=== PATIENT | male | born 1985 | race Caucasian/White ===

== ENCOUNTER 2020-02-08 23:21 | Outpatient (CLI) | payer OTHER | END 2020-02-08 23:22 | disposition critical access hospital (66) | LOC: EMS 23:21 | PROVIDERS: ATTEND Surgery | DX: M25.511 Pain in right shoulder (principal); R42 Dizziness and giddiness; R20.0 Anesthesia of skin; M54.5 Low back pain | CPT/HCPCS: A0425; A0427 ==

== ENCOUNTER 2020-02-08 23:56 | Inpatient (IN) | payer OTHER ==
--- NOTE | 2020-02-09 00:14 | ED Physician Documentation ---
PD HPI UPPER EXT INJURY - Stated complaint Stated Complaint: RIGHT SHOULDER PAIN PD PAST MEDICAL HISTORY - Past Medical History Past Medical History: No Cardiovascular: None Respiratory: None Neuro: None Endocrine/Autoimmune: None GI: None : None HEENT: None Psych: None Musculoskeletal: None Derm: None - Past Surgical History Past Surgical History: Yes General: Other Ortho: Other - Allergies Allergies/Adverse Reactions: Allergies Allergy/AdvReac Type Severity Reaction Status Date / Time No Known Drug Allergies Allergy Verified 02/09/20 00:02 - Social History Does the pt smoke?: No Smoking Status: Never smoker Does the pt drink ETOH?: Yes Does the pt have substance abuse?: No - Immunizations Immunizations are current?: Yes - POLST Patient has POLST: No Results - Vitals Vitals: Vital Signs - 24 hr 02/08/20 23:59 Temperature 36.7 C Heart Rate 111 H Respiratory 17 Rate Blood Pressure 100/64 O2 Saturation 98 Oxygen O2 Source Room air
[2020-02-09 00:53] LABS: BASOPHILS # (AUTO) 0.1 10^3/uL (0.0-0.1); BASOPHILS % (AUTO) 0.4 %; EOSINOPHILS # (AUTO) 0.1 10^3/uL (0.0-0.7); EOSINOPHILS % (AUTO) 0.4 %; HGB - HEMOGLOBIN 9.6 g/dL (14.0-18.0); LYMPHOCYTES # (AUTO) 1.3 10^3/uL (1.5-3.5); LYMPHOCYTES % (AUTO) 9.4 %; MEAN CORPUSCULAR HEMOGLOBIN 33.7 pg (27.0-31.0); MEAN CORPUSCULAR HGB CONC 34.4 g/dL (32.0-36.0); MEAN CORPUSCULAR VOLUME 97.9 fL (80.0-94.0); MEAN PLATELET VOLUME 9.2 fL (7.4-11.4); MONOCYTES # (AUTO) 0.8 10^3/uL (0.0-1.0); MONOCYTES % (AUTO) 5.8 %; NEUTROPHILS # (AUTO) 11.1 10^3/uL (1.5-6.6); NEUTROPHILS % (AUTO) 83.5 %; PLT - PLATELET COUNT 190 10^3/uL (130-450); RED BLOOD COUNT 2.85 10^6/uL (4.70-6.10); RED CELL DISTRIBUTION WIDTH 12.3 % (12.0-15.0); WHITE BLOOD COUNT 13.4 x10^3/uL (4.8-10.8)
[2020-02-09 00:58] LABS: CALCIUM 7.9 mg/dL (8.5-10.3); CREATININE 0.8 mg/dL (0.6-1.2)
--- NOTE | 2020-02-09 00:58 | XRAY Report ---
Reason: right chest pain, dyspnea Procedure Date: 02/09/2020 Accession Number: [id number] / [id number] Procedure: XR - Chest 2 View X-Ray CPT Code: 26739 Addended Final Report FULL RESULT: EXAM: CHEST RADIOGRAPHY EXAM DATE: 02/09/2020 12:53 AM. CLINICAL HISTORY: Right chest pain, dyspnea. COMPARISON: None. TECHNIQUE: 2 views. FINDINGS: There is a large right hydropneumothorax with collapse of the right lung. No mediastinal shift is seen. The left lung is clear and fully inflated. The heart size is normal. No acute osseous abnormality is seen. IMPRESSION: Large right hydropneumothorax with collapse of the right lung. RADIA The critical result notification system was initiated by Dr. Jenn Cardozo at 12:55 AM on 02/09/2020. ADDENDUM: 02/09/20 01:00 The above critical result findings were discussed with Gil Gannon by Dr. Jenn Cardozo at 01:00 AM on 02/09/2020.
[2020-02-09] MEDS ORDERED: LIDOCAINE-MPF 2% 5 ML VIAL SUBQ STA (01:07)
[2020-02-09] MEDS ORDERED: LORazepam 2 MG/ML VIAL IVP STA (01:13)
[2020-02-09] MEDS ORDERED: IOVERSOL 320 100 ML VIAL IVP ONE ×2 (01:54→02:14)
--- NOTE | 2020-02-09 01:54 | XRAY Report ---
Reason: Chest tube Procedure Date: 02/09/2020 Accession Number: [id number] / [id number] Procedure: XR - Chest for Line Placement CPT Code: Final Report FULL RESULT: EXAM: CHEST RADIOGRAPHY EXAM DATE: 02/09/2020 01:47 AM. CLINICAL HISTORY: Chest tube. COMPARISON: CHEST 2 VIEW 02/09/2020 12:47 AM. TECHNIQUE: 1 view. FINDINGS: A right pigtail catheter has been placed since the prior exam. There is no significant change in the size of the right hydropneumothorax with continued collapse of the right lung. The left lung remains clear. There is no mediastinal shift. The heart size is normal. IMPRESSION: No change in size of the large right hydropneumothorax following placement of a right pigtail catheter. RADIA
[2020-02-09 01:57] LABS: HGB - HEMOGLOBIN 9.2 g/dL (14.0-18.0)
--- NOTE | 2020-02-09 02:35 | CT Report ---
Reason: right hemo/pneumothorax Procedure Date: 02/09/2020 Accession Number: [id number] / [id number] Procedure: CT - CHEST W CPT Code: Final Report FULL RESULT: EXAM: CT CHEST EXAM DATE: 02/09/2020 02:08 AM. CLINICAL HISTORY: Right hydropneumothorax. COMPARISONS: Chest radiograph 02/09/2020 1:23 AM CHEST 2 VIEW 02/09/2020 12:47 AM. TECHNIQUE: Routine helical CT imaging was performed through the chest. IV contrast: None. Reconstructions: Coronal and sagittal. In accordance with CT protocol optimization, one or more of the following dose reduction techniques were utilized for this exam: automated exposure control, adjustment of mA and/or KV based on patient size, or use of iterative reconstructive technique. FINDINGS: The visible thyroid gland is within normal limits. Small foci of gas are seen anterior to the left thyroid lobe, likely related to the recent procedure. A small focus of air in the left internal jugular vein is likely related to the contrast injection. There is a left aortic arch with normal three-vessel branching pattern. The aorta and pulmonary artery are normal in course and caliber. The heart size is normal. There is no pericardial effusion. No mediastinal, hilar, or axillary lymphadenopathy is seen. The trachea is patent. There is a right pleural drain seen anteriorly. The pneumothorax component of the large right pneumothorax has significantly decreased in size since the previous chest radiographs. The large hydrothorax component persists. Areas of hyperattenuation within the lateral aspect of the fluid may represent areas of hemorrhage (series 3, images 67-77). The fluid extends anterior to the right upper lobe and along the right major and minor fissures. Consolidation and/or atelectasis is seen throughout the majority of the right lower lobe. The right upper lobe and right middle lobe are largely spared. Small subpleural cysts are seen along the anterior right lung apex. The left lung is clear. There is no left pleural effusion or pneumothorax. The visible portions of the liver, gallbladder, spleen, and kidneys are within normal limits. The stomach is distended with food material. He has since thorax is intact. The spinal alignment is maintained. There are no suspicious lytic or blastic lesions. IMPRESSION: 1. Decreased size of the pneumothorax component of the large right hydropneumothorax. 2. Areas of hyperattenuation within the right pleural effusion suggesting hemorrhagic component. 3. Large areas of consolidation in the right lower lobe. Given the presence of the large pleural effusion, this may be the result of an underlying pneumonia rather than simple collapse from the pneumothorax. RADIA The call report notification system was initiated by Dr. Jenn Cardozo at 02:27 AM on 02/09/2020. The above call report findings were discussed with Dr. Gil Gannon by Dr. Jenn Cardozo at 02:29 AM on 02/09/2020.
[2020-02-09] MEDS ORDERED: HYDROcod/ACETAM 5/325 MG TABLET PO STA (03:40)
--- NOTE | 2020-02-09 03:47 | HISTORY & PHYSICAL EXAMINATION ---
Chief Complaint - Chief Complaint Chief Complaint: acute onset right chest pain and shortness of breath earlier today Abdominal Pain HPI - History Obtained From History obtained from: Patient Exam limitations: No limitations - History of Present Illness Severity at the worst: Moderate Pain Quality: Sharp Timing: Abrupt onset Duration: Hours: Improved with: Oxygen, Other (chest tube) Associated symptoms: Shortness of air (much improved after chest tube) PMH/PSH - Past Medical History Cardiovascular: positive: None Respiratory: positive: None Neuro: positive: None Endocrine/Autoimmune: positive: None GI: positive: None : positive: None HEENT: positive: None Psych: positive: None Musculoskeletal: positive: None Derm: positive: None MRSA Hx?: No - Past Surgical History General: positive: Other Ortho: positive: Other Social & Family Hx - Social History Does the pt smoke?: No Smoking Status: Never smoker Does the pt drink ETOH?: Yes Does the pt have substance abuse?: No - POLST Patient has POLST: No Meds/Allgy - Allergies Allergies/Adverse Reactions: Allergies Allergy/AdvReac Type Severity Reaction Status Date / Time No Known Drug Allergies Allergy Verified 02/09/20 00:02 Review of Systems - Constitutional Constitutional: reports: Fatigue (10 pt ros otherwise negative. was well 24 hours ago) Prior Level of Functionality: very good Exam - Vital Signs Vital Signs: Vital Signs x48h Temp Pulse Resp BP Pulse Ox 02/09/20 03:31 37.1 C 92 14 101/56 L 02/09/20 03:24 94 14 100 02/09/20 03:20 37.3 C 103 H 18 96/58 L 02/09/20 03:15 37.1 C 101 H 15 104/55 L 02/09/20 02:47 20 02/09/20 02:41 105 H 20 108/80 100 02/09/20 02:36 105 H 19 103/74 100 02/09/20 02:12 105 H 22 106/65 100 02/09/20 02:04 103 H 20 105/73 99 02/09/20 01:56 20 93/59 L 02/09/20 01:32 124 H 21 96 02/09/20 01:24 117 H 22 97 02/09/20 01:18 125 H 22 112/75 98 02/09/20 00:54 109 H 18 106/71 100 02/08/20 23:59 36.7 C 111 H 17 100/64 98 - Physical Exam General Appearance: positive: No acute distress, Alert Eyes Bilateral: positive: Normal inspection ENT: positive: ENT inspection nml Neck: positive: Nml inspection Respiratory: positive: Breath sounds nml, Other (right anterior chest tube with valve. not to suction) Cardiovascular: positive: Regular rate & rhythm Abdomen: positive: No distention Results - Lab Results Fish Bones: 02/09/20 01:50 02/09/20 00:41 Other Lab Results: Lab Results x24hrs 02/09/20 02/09/20 02/09/20 Range/Units 01:50 01:50 00:41 WBC (4.8-10.8) x10^3/uL RBC (4.70-6.10) 10^6/uL Hgb 9.2 L (14.0-18.0) g/dL Hct 27.0 L (42.0-52.0) % MCV (80.0-94.0) fL MCH (27.0-31.0) pg MCHC (32.0-36.0) g/dL RDW (12.0-15.0) % Plt Count (130-450) 10^3/uL MPV (7.4-11.4) fL Neut # (Auto) (1.5-6.6) 10^3/uL Lymph # (Auto) (1.5-3.5) 10^3/uL [place] # (Auto) (0.0-1.0) 10^3/uL Eos # (Auto) (0.0-0.7) 10^3/uL Baso # (Auto) (0.0-0.1) 10^3/uL Absolute Nucleated RBC x10^3/uL Nucleated RBC % /100WBC Sodium (135-145) mmol/L Potassium (3.5-5.0) mmol/L Chloride (101-111) mmol/L Carbon Dioxide (21-32) mmol/L Anion Gap (6-13) BUN (6-20) mg/dL Creatinine (0.6-1.2) mg/dL Estimated GFR (MDRD) (>89) Glucose (70-100) mg/dL Calcium (8.5-10.3) mg/dL Blood Type A POSITIVE Blood Type Recheck A POSITIVE Antibody Screen NEGATIVE Crossmatch IS Only See Detail 02/09/20 02/09/20 Range/Units 00:41 00:41 WBC 13.4 H (4.8-10.8) x10^3/uL RBC 2.85 L (4.70-6.10) 10^6/uL Hgb 9.6 L (14.0-18.0) g/dL Hct 27.9 L (42.0-52.0) % MCV 97.9 H (80.0-94.0) fL MCH 33.7 H (27.0-31.0) pg MCHC 34.4 (32.0-36.0) g/dL RDW 12.3 (12.0-15.0) % Plt Count 190 (130-450) 10^3/uL MPV 9.2 (7.4-11.4) fL Neut # (Auto) 11.1 H (1.5-6.6) 10^3/uL Lymph # (Auto) 1.3 L (1.5-3.5) 10^3/uL [place] # (Auto) 0.8 (0.0-1.0) 10^3/uL Eos # (Auto) 0.1 (0.0-0.7) 10^3/uL Baso # (Auto) 0.1 (0.0-0.1) 10^3/uL Absolute Nucleated RBC 0.00 x10^3/uL Nucleated RBC % 0.0 /100WBC Sodium 137 (135-145) mmol/L Potassium 3.6 (3.5-5.0) mmol/L Chloride 107 (101-111) mmol/L Carbon Dioxide 23 (21-32) mmol/L Anion Gap 7.0 (6-13) BUN 17 (6-20) mg/dL Creatinine 0.8 (0.6-1.2) mg/dL Estimated GFR (MDRD) 109 (>89) Glucose 160 H (70-100) mg/dL Calcium 7.9 L (8.5-10.3) mg/dL Blood Type Blood Type Recheck Antibody Screen Crossmatch IS Only - Diagnostic Imaging Results Diagnostic Imaging Results: positive: Prelim report reviewed, Read independently Impression/Plan - Problem List Problem List: spontaneous pneumothorax with hemothorax right chest. much improved with ivf and chest tube. chest xrays and ct reviewed and discussed with ED Doctor and patient. Agree with care and plan. He is clinically much improved and his hemopneumothorax is much improved. plan 02 therapy, close observation, transfuse 1 unit, check labs and xray in am. Possibility of needing larger chest tube discussed.
[2020-02-09] MEDS: LACTATED RINGERS 1,000 ML IV SCH ×2 (05:22→13:26)
--- NOTE | 2020-02-09 06:26 | ED Physician Documentation ---
History of Present Illness - Stated complaint Stated Complaint: RIGHT SHOULDER PAIN - Chief complaint Chief Complaint: Ext Problem - History obtained from History obtained from: Patient, EMS - History of Present Illness Timing: Enter time (17:00), Today Pain level now: 4 Improved by: morphine (given by medics en route, 4 mg IV) Worsened by: deep breath in Associated symptoms: dyspnea, chest pain - Additonal information Additional information: BIBA. patient c/o right shoulder pain that started suddenly when he was throwing sticks while playing with a dog at 5 pm today. the pain gradually worsened and began to involve his right lower chest and right mid/low back, worse with deep breath in. He also developed some shortness of breath. Denies h/o similar symptoms. He was given 4mg IV morphine by medics en route and 400cc IV NS Review of Systems Constitutional: denies: Fever, Chills, Sweats Eyes: reports: Reviewed and negative Ears: reports: Reviewed and negative Nose: reports: Reviewed and negative Throat: reports: Reviewed and negative Cardiac: reports: Chest pain / pressure. denies: Palpitations, Pedal edema, Calf pain Respiratory: reports: Dyspnea. denies: Cough, Hemoptysis, Wheezing GI: reports: Reviewed and negative Musculoskeletal: reports: Joint pain (right shoulder) Neurologic: denies: Focal weakness, Numbness PD PAST MEDICAL HISTORY - Past Medical History Past Medical History: No Cardiovascular: None Respiratory: None Neuro: None Endocrine/Autoimmune: None GI: None : None HEENT: None Psych: None Musculoskeletal: None Derm: None - Past Surgical History Past Surgical History: Yes General: Other Ortho: Other - Allergies Allergies/Adverse Reactions: Allergies Allergy/AdvReac Type Severity Reaction Status Date / Time No Known Drug Allergies Allergy Verified 02/09/20 00:02 - Social History Does the pt smoke?: No Smoking Status: Never smoker Does the pt drink ETOH?: Yes Does the pt have substance abuse?: No - Immunizations Immunizations are current?: Yes - POLST Patient has POLST: No PD ED PE NORMAL - Vitals Vital signs reviewed: Yes - General General: Alert and oriented X 3, No acute distress, Well developed/nourished - HEENT HEENT: Moist mucous membranes - Neck Neck: Supple, no meningeal sign - Cardiac Cardiac: RRR, No murmur, No gallop, No rub - Respiratory Respiratory: No respiratory distress - Abdomen Abdomen: Soft, Non tender - Derm Derm: Normal color, Warm and dry - Extremities Extremities: No edema PD ED PE EXPANDED - Respiratory Respiratory: Absent Breath Sounds (right hemithorax) Results - Vitals Vitals: Vital Signs - 24 hr 02/08/20 02/09/20 02/09/20 23:59 00:54 01:18 Temperature 36.7 C Heart Rate 111 H 109 H 125 H Respiratory 17 18 22 Rate Blood Pressure 100/64 106/71 112/75 O2 Saturation 98 100 98 02/09/20 02/09/20 02/09/20 01:24 01:32 01:56 Temperature Heart Rate 117 H 124 H Respiratory 22 21 20 Rate Blood Pressure 93/59 L O2 Saturation 97 96 02/09/20 02/09/20 02/09/20 02:04 02:12 02:36 Temperature Heart Rate 103 H 105 H 105 H Respiratory 20 22 19 Rate Blood Pressure 105/73 106/65 103/74 O2 Saturation 99 100 100 02/09/20 02/09/20 02/09/20 02:41 02:47 03:15 Temperature 37.1 C Heart Rate 105 H 101 H Respiratory 20 20 15 Rate Blood Pressure 108/80 104/55 L O2 Saturation 100 02/09/20 02/09/20 02/09/20 03:20 03:24 03:31 Temperature 37.3 C 37.1 C Heart Rate 103 H 94 92 Respiratory 18 14 14 Rate Blood Pressure 96/58 L 101/56 L O2 Saturation 100 02/09/20 04:15 Temperature Heart Rate 96 Respiratory 14 Rate Blood Pressure 99/54 L O2 Saturation 100 Oxygen O2 Source Non-rebreather mask Oxygen Flow Rate 15 - Labs Labs: Laboratory Tests 02/09/20 02/09/20 02/09/20 00:41 00:41 00:41 WBC 13.4 H RBC 2.85 L Hgb 9.6 L Hct 27.9 L MCV 97.9 H MCH 33.7 H MCHC 34.4 RDW 12.3 Plt Count 190 MPV 9.2 Neut # (Auto) 11.1 H Lymph # (Auto) 1.3 L [place] # (Auto) 0.8 Eos # (Auto) 0.1 Baso # (Auto) 0.1 Absolute Nucleated RBC 0.00 Nucleated RBC % 0.0 Sodium 137 Potassium 3.6 Chloride 107 Carbon Dioxide 23 Anion Gap 7.0 BUN 17 Creatinine 0.8 Estimated GFR (MDRD) 109 Glucose 160 H Calcium 7.9 L Blood Type Blood Type Recheck A POSITIVE Antibody Screen Crossmatch IS Only 02/09/20 02/09/20 01:50 01:50 WBC RBC Hgb 9.2 L Hct 27.0 L MCV MCH MCHC RDW Plt Count MPV Neut # (Auto) Lymph # (Auto) [place] # (Auto) Eos # (Auto) Baso # (Auto) Absolute Nucleated RBC Nucleated RBC % Sodium Potassium Chloride Carbon Dioxide Anion Gap BUN Creatinine Estimated GFR (MDRD) Glucose Calcium Blood Type A POSITIVE Blood Type Recheck Antibody Screen NEGATIVE Crossmatch IS Only See Detail - Rads (name of study) cxr Radiology: Prelim report reviewed, See rad report post-chest tube cxr Radiology: Prelim report reviewed, See rad report CT chest w/ contrast Radiology: Prelim report reviewed, See rad report Procedures - Chest Tube (location) right other other Chest tube preparation: Consent obtained, Sterile prep and drape Chest tube location: Right, Intercostal space - enter (2nd), Other (midclavicular line) Chest tube anesthesia: Lidocaine (3 cc 2% lidocaine without epinephrine) Chest tube size: 13 (UreSil) Chest tube return: Air, Blood, Volume of blood (enter cc (approximately 150cc) Chest tube after care: Confirmed with xray, Pt tolerated well PD MEDICAL DECISION MAKING - ED course Complexity details: reviewed results, re-evaluated patient, considered differential, d/w patient ED course: large right pneumothorax on cxr, spontaneous ptx by HPI. UreSil chest tube placed. Initially, mostly blood was returning with syringe suction (approximately 100cc), and thus repeat CXR ordered as well as CT chest w/contrast. after repeat CXR, patient was sitting more upright than previous, and I was then able to suction large amount of air before eventually having more blood return (another 50cc). Patient's blood pressure then decreased steadily into hypotensive range (80s, then 70s, then 60s) although he did not show any clinical signs of deterioration (such as AMS or dyspnea). CT shows reexpansion of the pneumonthorax but still large pleural effusion. Dr. Erickson (environmental specialist surgeon) evaluated patient in ED. Fortunately, patient's blood pressures normalized just before he was brought over for the CT and he remained normotensive for remainder of ED stay. Admitted to surgical service. Departure - Departure Disposition: 66 [facility] DC/Xfer Clinical Impression: Hemopneumothorax on right Condition: Stable Discharge Date/Time: 02/09/20 05:00
[2020-02-09 08:11] LABS: BASOPHILS % (AUTO) 0.2 %; EOSINOPHILS % (AUTO) 0.2 %; LYMPHOCYTES # (AUTO) 1.6 10^3/uL (1.5-3.5); LYMPHOCYTES % (AUTO) 20.3 %; MEAN CORPUSCULAR HEMOGLOBIN 32.7 pg (27.0-31.0); MEAN CORPUSCULAR HGB CONC 34.5 g/dL (32.0-36.0); MEAN CORPUSCULAR VOLUME 94.7 fL (80.0-94.0); MEAN PLATELET VOLUME 9.5 fL (7.4-11.4); MONOCYTES # (AUTO) 0.7 10^3/uL (0.0-1.0); NEUTROPHILS # (AUTO) 5.6 10^3/uL (1.5-6.6); NEUTROPHILS % (AUTO) 70.1 %; PLT - PLATELET COUNT 153 10^3/uL (130-450); RED BLOOD COUNT 2.45 10^6/uL (4.70-6.10)
[2020-02-09 08:23] LABS: INR 1.3 (0.8-1.2); PT - PROTHROMBIN TIME 14.1 secs (9.9-12.6)
[2020-02-09 08:30] LABS: PARTIAL THROMBOPLASTIN TIME 18.4 secs (24.9-33.3)
--- NOTE | 2020-02-09 12:48 | XRAY Report ---
Reason: ptx Procedure Date: 02/09/2020 Accession Number: [id number] / [id number] Procedure: XR - Chest 2 View X-Ray CPT Code: 45107 Final Report FULL RESULT: EXAM: CHEST RADIOGRAPHY EXAM DATE: 02/09/2020 12:24 PM. CLINICAL HISTORY: Ptx. COMPARISON: - - - - - 02/09/2020 1:23 AM CHEST 2 VIEW 02/09/2020 12:47 AM CHEST W/ 02/09/2020 2:00 AM. TECHNIQUE: 2 views. FINDINGS: Support apparatus: Right pleural drain unchanged. Lungs/Pleura: Large right hydropneumothorax with small air component and large fluid component. The majority of the right lung is opacified with a small amount of aerated lung seen in the right upper thorax. Blunting of the left costophrenic angle could reflect trace left pleural effusion. Left chest is otherwise clear. Mediastinum: Evaluation of cardiomediastinal silhouette is limited by opacification of the right thorax. No obvious cardiomegaly or leftward shift. Other: None. IMPRESSION: 1. Redemonstrated large right hydropneumothorax with small air component and large fluid component. Majority of right lung is consolidated. Allowing for differences in technique, there may be increased consolidation of the right lung. Otherwise similar appearance to CT chest performed earlier on 02/09/2020. Pleural drain unchanged. 2. Trace left pleural effusion may now be present. RADIA
--- NOTE | 2020-02-09 13:28 | PROVIDER PROGRESS NOTE ---
Subjective - Prog Note Date Prog Note Date: 02/09/20 - Subjective Pt reports feeling: Improved (denies shortness of breath. discomfort improved.) Objective - Vital Signs/Intake & Output Vital Signs: Vital Signs x48h Temp Pulse Pulse Resp BP BP Pulse Ox 02/09/20 10:10 37 C 111 H 18 100 02/09/20 07:30 37.0 C 111 H 18 114/62 97 02/09/20 07:03 98 02/09/20 05:27 37.1 C 102 H 16 104/58 L Intake & Output: Intake & Output 02/06/20 02/07/20 02/08/20 02/09/20 23:59 23:59 23:59 23:59 Intake Total 2300 Balance 2300 - Objective General Appearance: positive: No acute distress Eyes Bilateral: positive: Normal inspection Neck: positive: Nml inspection, No JVD Respiratory: positive: No respiratory distress - Lab Results Fish Bones: 02/09/20 08:03 02/09/20 00:41 Other Labs: Lab Results x24hrs 02/09/20 02/09/20 02/09/20 Range/Units 08:03 08:03 01:50 WBC 8.0 (4.8-10.8) x10^3/uL RBC 2.45 L (4.70-6.10) 10^6/uL Hgb 8.0 L (14.0-18.0) g/dL Hct 23.2 L (42.0-52.0) % MCV 94.7 H (80.0-94.0) fL MCH 32.7 H (27.0-31.0) pg MCHC 34.5 (32.0-36.0) g/dL RDW 15.0 (12.0-15.0) % Plt Count 153 (130-450) 10^3/uL MPV 9.5 (7.4-11.4) fL Neut # (Auto) 5.6 (1.5-6.6) 10^3/uL Lymph # (Auto) 1.6 (1.5-3.5) 10^3/uL [place] # (Auto) 0.7 (0.0-1.0) 10^3/uL Eos # (Auto) 0.0 (0.0-0.7) 10^3/uL Baso # (Auto) 0.0 (0.0-0.1) 10^3/uL Absolute Nucleated RBC 0.00 x10^3/uL Nucleated RBC % 0.0 /100WBC PT 14.1 H (9.9-12.6) secs INR 1.3 H (0.8-1.2) APTT 18.4 L (24.9-33.3) secs Sodium (135-145) mmol/L Potassium (3.5-5.0) mmol/L Chloride (101-111) mmol/L Carbon Dioxide (21-32) mmol/L Anion Gap (6-13) BUN (6-20) mg/dL Creatinine (0.6-1.2) mg/dL Estimated GFR (MDRD) (>89) Glucose (70-100) mg/dL Calcium (8.5-10.3) mg/dL Blood Type A POSITIVE Blood Type Recheck Antibody Screen NEGATIVE Crossmatch IS Only See Detail 02/09/20 02/09/20 02/09/20 Range/Units 01:50 00:41 00:41 WBC (4.8-10.8) x10^3/uL RBC (4.70-6.10) 10^6/uL Hgb 9.2 L (14.0-18.0) g/dL Hct 27.0 L (42.0-52.0) % MCV (80.0-94.0) fL MCH (27.0-31.0) pg MCHC (32.0-36.0) g/dL RDW (12.0-15.0) % Plt Count (130-450) 10^3/uL MPV (7.4-11.4) fL Neut # (Auto) (1.5-6.6) 10^3/uL Lymph # (Auto) (1.5-3.5) 10^3/uL [place] # (Auto) (0.0-1.0) 10^3/uL Eos # (Auto) (0.0-0.7) 10^3/uL Baso # (Auto) (0.0-0.1) 10^3/uL Absolute Nucleated RBC x10^3/uL Nucleated RBC % /100WBC PT (9.9-12.6) secs INR (0.8-1.2) APTT (24.9-33.3) secs Sodium 137 (135-145) mmol/L Potassium 3.6 (3.5-5.0) mmol/L Chloride 107 (101-111) mmol/L Carbon Dioxide 23 (21-32) mmol/L Anion Gap 7.0 (6-13) BUN 17 (6-20) mg/dL Creatinine 0.8 (0.6-1.2) mg/dL Estimated GFR (MDRD) 109 (>89) Glucose 160 H (70-100) mg/dL Calcium 7.9 L (8.5-10.3) mg/dL Blood Type Blood Type Recheck A POSITIVE Antibody Screen Crossmatch IS Only 02/09/20 Range/Units 00:41 WBC 13.4 H (4.8-10.8) x10^3/uL RBC 2.85 L (4.70-6.10) 10^6/uL Hgb 9.6 L (14.0-18.0) g/dL Hct 27.9 L (42.0-52.0) % MCV 97.9 H (80.0-94.0) fL MCH 33.7 H (27.0-31.0) pg MCHC 34.4 (32.0-36.0) g/dL RDW 12.3 (12.0-15.0) % Plt Count 190 (130-450) 10^3/uL MPV 9.2 (7.4-11.4) fL Neut # (Auto) 11.1 H (1.5-6.6) 10^3/uL Lymph # (Auto) 1.3 L (1.5-3.5) 10^3/uL [place] # (Auto) 0.8 (0.0-1.0) 10^3/uL Eos # (Auto) 0.1 (0.0-0.7) 10^3/uL Baso # (Auto) 0.1 (0.0-0.1) 10^3/uL Absolute Nucleated RBC 0.00 x10^3/uL Nucleated RBC % 0.0 /100WBC PT (9.9-12.6) secs INR (0.8-1.2) APTT (24.9-33.3) secs Sodium (135-145) mmol/L Potassium (3.5-5.0) mmol/L Chloride (101-111) mmol/L Carbon Dioxide (21-32) mmol/L Anion Gap (6-13) BUN (6-20) mg/dL Creatinine (0.6-1.2) mg/dL Estimated GFR (MDRD) (>89) Glucose (70-100) mg/dL Calcium (8.5-10.3) mg/dL Blood Type Blood Type Recheck Antibody Screen Crossmatch IS Only - Diagnostic Imaging Diagnostic Imaging Results: positive: Prelim report reviewed, Final report reviewed Assessment/Plan - Problem List (1) Hemopneumothorax on right Impression: hemopneumothorax. he denies shortness of breath, felt improved. he left for xray when I was present. result now back hemopneumothorax with small pneumothorax and right lung consolidation. this is discussed with [place] [facility] and the patient. plan continued observation. transfuse second unit of blood. possible larger chest tube later today or tomorrow
[2020-02-09] MEDS: HYDROcod/ACETAM 5/325 MG TABLET PO PRN ×2 (16:09→20:41)
[2020-02-09 18:26] LABS: BASOPHILS % (AUTO) 0.3 %; EOSINOPHILS # (AUTO) 0.1 10^3/uL (0.0-0.7); EOSINOPHILS % (AUTO) 1.2 %; HGB - HEMOGLOBIN 8.2 g/dL (14.0-18.0); LYMPHOCYTES # (AUTO) 2.5 10^3/uL (1.5-3.5); LYMPHOCYTES % (AUTO) 25.5 %; MEAN CORPUSCULAR HEMOGLOBIN 32.7 pg (27.0-31.0); MEAN CORPUSCULAR HGB CONC 34.7 g/dL (32.0-36.0); MEAN PLATELET VOLUME 9.6 fL (7.4-11.4); MONOCYTES # (AUTO) 0.8 10^3/uL (0.0-1.0); MONOCYTES % (AUTO) 7.9 %; NEUTROPHILS # (AUTO) 6.3 10^3/uL (1.5-6.6); NEUTROPHILS % (AUTO) 64.8 %; PLT - PLATELET COUNT 134 10^3/uL (130-450); RED BLOOD COUNT 2.51 10^6/uL (4.70-6.10); RED CELL DISTRIBUTION WIDTH 15.2 % (12.0-15.0); WHITE BLOOD COUNT 9.7 x10^3/uL (4.8-10.8)
[2020-02-10] MEDS: LACTATED RINGERS 1,000 ML IV SCH ×3 (00:39→20:58)
[2020-02-10] MEDS: HYDROcod/ACETAM 5/325 MG TABLET PO PRN ×5 (04:54→22:19)
[2020-02-10 06:19] LABS: BASOPHILS % (AUTO) 0.3 %; EOSINOPHILS # (AUTO) 0.1 10^3/uL (0.0-0.7); HGB - HEMOGLOBIN 7.9 g/dL (14.0-18.0); LYMPHOCYTES # (AUTO) 1.8 10^3/uL (1.5-3.5); LYMPHOCYTES % (AUTO) 19.8 %; MEAN CORPUSCULAR HEMOGLOBIN 31.6 pg (27.0-31.0); MEAN CORPUSCULAR HGB CONC 33.9 g/dL (32.0-36.0); MEAN CORPUSCULAR VOLUME 93.2 fL (80.0-94.0); MEAN PLATELET VOLUME 10.4 fL (7.4-11.4); MONOCYTES # (AUTO) 0.8 10^3/uL (0.0-1.0); MONOCYTES % (AUTO) 8.8 %; NEUTROPHILS # (AUTO) 6.3 10^3/uL (1.5-6.6); NEUTROPHILS % (AUTO) 69.8 %; PLT - PLATELET COUNT 153 10^3/uL (130-450); RED CELL DISTRIBUTION WIDTH 15.5 % (12.0-15.0)
[2020-02-10] MEDS ORDERED: LIDOCAINE 1% 50 ML MDV TD ONE (10:03)
[2020-02-10] MEDS ORDERED: BUPIVACAINE 0.5% PF 30 ML VIAL TOP STA (10:12)
--- NOTE | 2020-02-10 12:29 | PROVIDER PROGRESS NOTE ---
Subjective - Prog Note Date Prog Note Date: 02/10/20 - Subjective Pt reports feeling: Improved (comfortable over night with no shortness of breath. feeling more left chest pressure) Objective - Vital Signs/Intake & Output Vital Signs: Vital Signs x48h Temp Pulse Resp BP Pulse Ox 02/10/20 08:41 37 C 118 H 16 137/79 H 96 02/10/20 05:00 37.1 C 19 99 Intake & Output: Intake & Output 02/07/20 02/08/20 02/09/20 02/10/20 23:59 23:59 23:59 23:59 Intake Total 4990.833 1727.084 Output Total 325 350 Balance 4665.833 1377.084 - Objective General Appearance: positive: No acute distress, Alert Eyes Bilateral: positive: Normal inspection, PERRL ENT: positive: ENT inspection nml Neck: positive: Nml inspection, No JVD, Trachea midline Respiratory: positive: No respiratory distress Cardiovascular: positive: Regular rate & rhythm Abdomen: positive: Non-tender, No distention Extremities: positive: No pedal edema Neurologic/Psychiatric: positive: Oriented x3 - Lab Results Fish Bones: 02/10/20 05:04 02/09/20 00:41 Other Labs: Lab Results x24hrs 02/10/20 02/09/20 02/09/20 Range/Units 05:04 18:20 01:50 WBC 9.0 9.7 (4.8-10.8) x10^3/uL RBC 2.50 L 2.51 L (4.70-6.10) 10^6/uL Hgb 7.9 L 8.2 L (14.0-18.0) g/dL Hct 23.3 L 23.6 L (42.0-52.0) % MCV 93.2 94.0 (80.0-94.0) fL MCH 31.6 H 32.7 H (27.0-31.0) pg MCHC 33.9 34.7 (32.0-36.0) g/dL RDW 15.5 H 15.2 H (12.0-15.0) % Plt Count 153 134 (130-450) 10^3/uL MPV 10.4 9.6 (7.4-11.4) fL Neut # (Auto) 6.3 6.3 (1.5-6.6) 10^3/uL Lymph # (Auto) 1.8 2.5 (1.5-3.5) 10^3/uL [place] # (Auto) 0.8 0.8 (0.0-1.0) 10^3/uL Eos # (Auto) 0.1 0.1 (0.0-0.7) 10^3/uL Baso # (Auto) 0.0 0.0 (0.0-0.1) 10^3/uL Absolute Nucleated RBC 0.00 0.00 x10^3/uL Nucleated RBC % 0.0 0.0 /100WBC Blood Type A POSITIVE Antibody Screen NEGATIVE Crossmatch IS Only See Detail Assessment/Plan - Problem List (1) Hemopneumothorax on right Impression: hemopneumothorax. after parq and consent right 32 fr chest tube placed under sterile conditions. well tolerated. plan follow up hct later today. cxr tomor row am. likely remove chest tube tuesday and home tuesday. possible need for 1 more unit of blood for total of 3 discussed
--- NOTE | 2020-02-10 12:34 | PROCEDURE REPORT ---
Hospitalist Procedure Note - Procedure Note Procedure Note: diagnosis hemopneumothorax anesthesia local with marcaine and lidocaine surgeon Jr Erickson MD Procedure: right 32 fr chest tube placed. sterile technique well tolerated findings 2500 ml thin bloody fluid and small amount of air
[2020-02-10] MEDS ORDERED: METOCLOPRAMIDE 10 MG TABLET PO PRN (14:20)
[2020-02-10] MEDS: ONDANSETRON ODT 4 MG TABLET TL PRN (14:32)
[2020-02-10] MEDS: KETOROLAC 15 MG/ML VIAL IVP PRN (19:05)
[2020-02-11] MEDS: ONDANSETRON ODT 4 MG TABLET TL PRN (00:25)
[2020-02-11] MEDS: HYDROcod/ACETAM 5/325 MG TABLET PO PRN ×4 (02:32→17:00)
[2020-02-11] MEDS: KETOROLAC 15 MG/ML VIAL IVP PRN ×2 (08:40→21:52)
--- NOTE | 2020-02-11 09:45 | XRAY Report ---
Reason: follow up hemopneumothorax Procedure Date: 02/11/2020 Accession Number: [id number] / [id number] Procedure: XR - Chest 2 View X-Ray CPT Code: 43005 Final Report FULL RESULT: EXAM: CHEST RADIOGRAPHY EXAM DATE: 02/11/2020 09:38 AM. CLINICAL HISTORY: Right pneumothorax. COMPARISON: CHEST 2 VIEW 02/09/2020 12:12 PM. TECHNIQUE: 2 views. FINDINGS: Lungs/Pleura: A right-sided chest tube is in place terminating along the mid lung region. There has been significant improvement in right lung aeration. A tiny right apical pneumothorax is seen with approximately 4 mm apical separation. There is patchy right midlung airspace disease in part due to atelectasis. The left lung remains clear. Mediastinum: Heart and mediastinal contours are unremarkable. Other: None. IMPRESSION: Significantly improved right lung aeration status post chest tube placement. Tiny right apical pneumothorax seen. Patchy right midlung airspace disease persist. RADIA
[2020-02-11] MEDS: LACTATED RINGERS 1,000 ML IV SCH ×2 (10:41→22:12)
--- NOTE | 2020-02-11 10:42 | PROVIDER PROGRESS NOTE ---
Subjective - Prog Note Date Prog Note Date: 02/11/20 - Subjective Pt reports feeling: Improved Objective - Vital Signs/Intake & Output Vital Signs: Vital Signs x48h Temp Pulse Resp BP Pulse Ox 02/11/20 07:51 36.7 C 85 16 134/83 H 97 02/11/20 05:15 70 18 118/73 97 Intake & Output: Intake & Output 02/08/20 02/09/20 02/10/20 02/11/20 23:59 23:59 23:59 23:59 Intake Total 4990.833 3270.084 400 Output Total 325 5200 1060 Balance 4665.833 -1929.916 -660 - Objective General Appearance: positive: No acute distress Eyes Bilateral: positive: Normal inspection ENT: positive: ENT inspection nml Neck: positive: Nml inspection, No JVD Respiratory: positive: No respiratory distress - Lab Results Fish Bones: 02/11/20 09:05 02/09/20 00:41 Other Labs: Lab Results x24hrs 02/11/20 02/10/20 02/09/20 Range/Units 09:05 12:32 01:50 Hct 28.4 L 21.2 L (42.0-52.0) % Blood Type A POSITIVE Antibody Screen NEGATIVE Crossmatch IS Only See Detail Assessment/Plan - Problem List (1) Hemopneumothorax on right Impression: much improved. hct now stable. cxr much improved. minimal fluid. pt feels much improved. continue chest tube today. home in 1 to 2 days
[2020-02-11 20:09] LABS: HGB - HEMOGLOBIN 8.6 g/dL (14.0-18.0)
[2020-02-12] MEDS: LACTATED RINGERS 1,000 ML IV SCH ×2 (00:27→14:08)
[2020-02-12] MEDS: HYDROcod/ACETAM 5/325 MG TABLET PO PRN ×2 (00:33→21:11)
[2020-02-12 06:00] LABS: BASOPHILS % (AUTO) 0.6 %; EOSINOPHILS # (AUTO) 0.4 10^3/uL (0.0-0.7); EOSINOPHILS % (AUTO) 5.5 %; HGB - HEMOGLOBIN 8.3 g/dL (14.0-18.0); LYMPHOCYTES # (AUTO) 2.5 10^3/uL (1.5-3.5); LYMPHOCYTES % (AUTO) 37.6 %; MEAN CORPUSCULAR HEMOGLOBIN 30.4 pg (27.0-31.0); MEAN CORPUSCULAR HGB CONC 33.5 g/dL (32.0-36.0); MEAN CORPUSCULAR VOLUME 90.8 fL (80.0-94.0); MEAN PLATELET VOLUME 9.7 fL (7.4-11.4); MONOCYTES # (AUTO) 0.5 10^3/uL (0.0-1.0); MONOCYTES % (AUTO) 8.1 %; NEUTROPHILS # (AUTO) 3.1 10^3/uL (1.5-6.6); NEUTROPHILS % (AUTO) 47.9 %; PLT - PLATELET COUNT 181 10^3/uL (130-450); RED BLOOD COUNT 2.73 10^6/uL (4.70-6.10); RED CELL DISTRIBUTION WIDTH 15.5 % (12.0-15.0); WHITE BLOOD COUNT 6.5 x10^3/uL (4.8-10.8)
--- NOTE | 2020-02-12 09:45 | XRAY Report ---
Reason: hemo/pneumo thorax s/p chest tube placement Procedure Date: 02/12/2020 Accession Number: [id number] / [id number] Procedure: XR - Chest 2 View X-Ray CPT Code: 68778 Final Report FULL RESULT: EXAM: CHEST RADIOGRAPHY EXAM DATE: 02/12/2020 09:01 AM. CLINICAL HISTORY: Hemo/pneumothorax status post chest tube placement. COMPARISON: CHEST 2 VIEW 02/11/2020 9:08 AM. TECHNIQUE: 2 views. FINDINGS: Lungs/Pleura: Negative for apical pneumothorax. Small pleural fluid right costophrenic angle. Posterior pleural sulcus decreased fluid as compared to 02/11/2020. Right chest tube is unchanged in position with the distal chest tube projection T7-T8. Loculated mid posterior right hemithorax pleural fluid or hemothorax without change as compared to 02/11/2020. Possible superimposed mid posterior right hemithorax atelectasis or consolidation. Mediastinum: Heart size is normal. Trachea is midline. Other: None. IMPRESSION: 1. Right-sided chest tube with distal chest tube projection T7-T8 disk interspace without change from 02/11/2020. 2. Mid posterior right hemithorax infiltrate and/or loculated pleural fluid likely unchanged as compared to 02/11/2020. 3. Small pleural fluid right costophrenic angle. RADIA
--- NOTE | 2020-02-12 11:47 | PROVIDER PROGRESS NOTE ---
Subjective - General Admit Date: 02/09/20 Procedure Date: 02/09/20 Post Op Days: 3 Procedure Performed: Right chest tube placement - Review of Systems Wound/Incisions: positive: Drainage (SS 60 ml last shift) Drain Type: Right CT- set to water seal, no air leak General: positive: No symptoms HEENT: positive: No symptoms Pulmonary: positive: Pleuritic chest pain (worse with laying flat and deep breathing) Cardiovascular: positive: No symptoms Gastrointestinal: positive: No symptoms Objective - Patient Data Vital Signs: Vital Signs x48h Temp Pulse Resp BP Pulse Ox 02/12/20 08:47 36.9 C 99 16 123/64 100 Intake & Output: Intake and Output Totals x24h 02/10/20 02/11/20 02/12/20 23:59 23:59 23:59 Intake Total 3270.084 2890 2373.75 Output Total 5200 3650 1360 Balance -1929.916 -760 1013.75 - Lab Results Lab Results: 02/12/20 05:47 02/09/20 00:41 Other Lab Results: Lab Results x24hrs 02/12/20 02/11/20 Range/Units 05:47 20:01 WBC 6.5 (4.8-10.8) x10^3/uL RBC 2.73 L (4.70-6.10) 10^6/uL Hgb 8.3 L 8.6 L (14.0-18.0) g/dL Hct 24.8 L 25.3 L (42.0-52.0) % MCV 90.8 (80.0-94.0) fL MCH 30.4 (27.0-31.0) pg MCHC 33.5 (32.0-36.0) g/dL RDW 15.5 H (12.0-15.0) % Plt Count 181 (130-450) 10^3/uL MPV 9.7 (7.4-11.4) fL Neut # (Auto) 3.1 (1.5-6.6) 10^3/uL Lymph # (Auto) 2.5 (1.5-3.5) 10^3/uL [place] # (Auto) 0.5 (0.0-1.0) 10^3/uL Eos # (Auto) 0.4 (0.0-0.7) 10^3/uL Baso # (Auto) 0.0 (0.0-0.1) 10^3/uL Absolute Nucleated RBC 0.00 x10^3/uL Nucleated RBC % 0.0 /100WBC - Current Medications Current Medications: Current Medications Generic Name Dose Route Start Last Admin Trade Name Freq PRN Reason Stop Dose Admin Hydrocodone Bitart/Acetaminophen 0 tab 02/10/20 12:21 02/12/20 00:33 [place] 5/325 PO 2 tab Q4HR PRN Administration PAIN Lactated Ringer's 1,000 mls @ 75 mls/hr 02/10/20 12:22 02/12/20 09:30 Lr IV 75 mls/hr .[id number] FRANCK Infusion Ketorolac Tromethamine 15 mg 02/10/20 18:51 02/11/20 21:52 Toradol Inj (15mg) IVP 15 mg Q6HR PRN Administration PAIN Metoclopramide HCl 10 mg 02/10/20 14:20 02/11/20 07:49 Reglan PO 10 mg ACHS PRN Administration Nausea / Vomiting Ondansetron HCl 4 mg 02/10/20 14:21 02/11/20 00:25 Zofran Odt TL 4 mg Q6HR PRN Administration Nausea / Vomiting - Physical Exam Wound/Incisions: positive: Dressing dry and intact, Drainage (60 ml last shift SS Ct-tube in placed changed to water seal, no air leak) General Appearance: positive: No acute distress Respiratory: positive: No respiratory distress, Breath sounds nml, Other (CT in place on right side) Cardiovascular: positive: Regular rate & rhythm Abdomen: positive: Non-tender Neurologic/Psychiatric: positive: Oriented x3, Mood/affect nml Impression/Plan - Problem List Problem List: Spontaneous Hemo/pneumothorax. Responding well to CT tube drainage. Changed to water seal today. Plan to continue to monitor H&H and recheck CXR in am. If stable plan to clamp the CT tube tomorrow am.
[2020-02-12 16:04] LABS: HGB - HEMOGLOBIN 8.8 g/dL (14.0-18.0)
[2020-02-13] MEDS: HYDROcod/ACETAM 5/325 MG TABLET PO PRN (01:38)
[2020-02-13] MEDS: LACTATED RINGERS 1,000 ML IV SCH (03:26)
[2020-02-13 05:41] LABS: HGB - HEMOGLOBIN 9.2 g/dL (14.0-18.0); MEAN CORPUSCULAR HEMOGLOBIN 31.6 pg (27.0-31.0); MEAN CORPUSCULAR HGB CONC 33.9 g/dL (32.0-36.0); MEAN CORPUSCULAR VOLUME 93.1 fL (80.0-94.0); MEAN PLATELET VOLUME 9.2 fL (7.4-11.4); RED BLOOD COUNT 2.91 10^6/uL (4.70-6.10); RED CELL DISTRIBUTION WIDTH 15.3 % (12.0-15.0); WHITE BLOOD COUNT 7.6 x10^3/uL (4.8-10.8)
--- NOTE | 2020-02-13 09:51 | PROVIDER PROGRESS NOTE ---
Subjective - General Admit Date: 02/09/20 Procedure Date: 02/09/20 Post Op Days: 4 Procedure Performed: Right chest tube placement - Review of Systems Wound/Incisions: positive: Dressing dry and intact, Drainage (60 ml last shift SS Ct-tube in placed changed to water seal, no air leak) Drain Type: Right CT- set to water seal, no air leak General: positive: No symptoms HEENT: positive: No symptoms Pulmonary: positive: Pleuritic chest pain (improved off suction, slept well last night) Cardiovascular: positive: No symptoms Gastrointestinal: positive: No symptoms Objective - Patient Data Vital Signs: Vital Signs x48h Temp Pulse Resp BP Pulse Ox 02/13/20 07:39 36.8 C 73 16 121/71 100 Intake & Output: Intake and Output Totals x24h 02/11/20 02/12/20 02/13/20 23:59 23:59 23:59 Intake Total 2890 3970.00 1360 Output Total 3650 1512 78 Balance -760 2458.00 1282 - Lab Results Lab Results: 02/13/20 05:25 02/09/20 00:41 Other Lab Results: Lab Results x24hrs 02/13/20 02/12/20 Range/Units 05:25 15:54 WBC 7.6 (4.8-10.8) x10^3/uL RBC 2.91 L (4.70-6.10) 10^6/uL Hgb 9.2 L 8.8 L (14.0-18.0) g/dL Hct 27.1 L 25.7 L (42.0-52.0) % MCV 93.1 (80.0-94.0) fL MCH 31.6 H (27.0-31.0) pg MCHC 33.9 (32.0-36.0) g/dL RDW 15.3 H (12.0-15.0) % Plt Count 258 (130-450) 10^3/uL MPV 9.2 (7.4-11.4) fL - Current Medications Current Medications: Current Medications Generic Name Dose Route Start Last Admin Trade Name Freq PRN Reason Stop Dose Admin Hydrocodone Bitart/Acetaminophen 0 tab 02/10/20 12:21 02/13/20 01:38 [place] 5/325 PO 1 tab Q4HR PRN Administration PAIN Lactated Ringer's 1,000 mls @ 75 mls/hr 02/10/20 12:22 02/13/20 03:26 Lr IV 75 mls/hr .[id number] FRANCK Administration Ketorolac Tromethamine 15 mg 02/10/20 18:51 02/11/20 21:52 Toradol Inj (15mg) IVP 02/14/20 18:50 15 mg Q6HR PRN Administration PAIN Metoclopramide HCl 10 mg 02/10/20 14:20 02/11/20 07:49 Reglan PO 10 mg ACHS PRN Administration Nausea / Vomiting Ondansetron HCl 4 mg 02/10/20 14:21 02/11/20 00:25 Zofran Odt TL 4 mg Q6HR PRN Administration Nausea / Vomiting - Physical Exam Wound/Incisions: positive: Dressing dry and intact General Appearance: positive: No acute distress Respiratory: positive: Chest non-tender, No respiratory distress, Breath sounds nml Cardiovascular: positive: Regular rate & rhythm Abdomen: positive: Non-tender Skin: positive: No rash, Warm Extremities: positive: Full ROM, Nml appearance Neurologic/Psychiatric: positive: Oriented x3, Mood/affect nml Impression/Plan - Problem List Problem List: spontaneous hemo/pneumo thorax. Did well with CT to water seal NOC, no air leak and CXR unchanged. CT tube clamped this am will check q 4 hour CXR. His output is right at the 200ml gabby and slightly bloody, after q4 hour CXR, will check output prior to pulling the tube, if elevated may consider leaving the tube in another 24 hours. Patient understands this plan and is in agreement with it.
--- NOTE | 2020-02-13 10:33 | XRAY Report ---
Reason: hemo/pneumo thorax CT in place Procedure Date: 02/13/2020 Accession Number: [id number] / [id number] Procedure: XR - Chest 2 View X-Ray CPT Code: 96300 Final Report FULL RESULT: EXAM: CHEST RADIOGRAPHY EXAM DATE: 02/13/2020 09:23 AM. CLINICAL HISTORY: Hemo/pneumothorax, chest tube in place. COMPARISON: CHEST 2 VIEW 02/12/2020 9:01 AM. TECHNIQUE: 2 views. FINDINGS: Lungs/Pleura: There is a small right apical pneumothorax on today's exam, with pullback of the visceral pleura of approximately 7 mm from the chest wall. No pneumothorax was identified on comparison. Mediastinum: Heart and mediastinal contours are unremarkable. No midline shift. Other: There has been minimal pullback of large-bore right chest tube, distal sidehole in the lateral aspect of the right hemithorax. Track along the chest tube to the midline slightly less conspicuous. Interval increase of small right-sided pleural fluid collection. Left lung appears clear. There is minimal left costophrenic angle blunting suggesting minimal fluid. IMPRESSION: Small right apical pneumothorax identified on today's study, measuring approximately 7 mm transversely at the right lung apex. Slight interval increase of fluid in the right hemithorax. RADIA
--- NOTE | 2020-02-13 13:26 | XRAY Report ---
Reason: pneumo/hemo thorax, CT clamped Procedure Date: 02/13/2020 Accession Number: [id number] / [id number] Procedure: XR - Chest 2 View X-Ray CPT Code: 96306 Final Report FULL RESULT: EXAM: CHEST RADIOGRAPHY EXAM DATE: 02/13/2020 12:59 PM. CLINICAL HISTORY: Pneumothorax/hemothorax, CT clamped. COMPARISON: CHEST 2 VIEW 02/13/2020 8:59 AM. TECHNIQUE: 2 views. FINDINGS: No significant change in small right apical pneumothorax, with pullback of approximately 7 mm of the visceral pleura from the chest wall. Stable position of right chest tube. Stable small right and trace left pleural fluid collections. IMPRESSION: No significant change in small right apical pneumothorax. RADIA
--- NOTE | 2020-02-13 14:40 | PHARMACY PROGRESS NOTE ---
- Best Possible Medication History Admit Date and Time: 02/09/20 0434 Processed by: Pharmacy Medication History completed: Yes Patient Interview: Pt interview ONLY source As the person ultimately responsible for medication therapy, providers are able to order a medication from an existing home medication list in [facility] via the "Reconcile Routine" prior to Confirmation of that medication by academic support center director. Such practice is discouraged except when the physician, in their clinical judgment, deems that a medical need exists for a medication without regard to previous use.
--- NOTE | 2020-02-13 15:27 | Discharge Plan ---
Discharge Plan Problem Reviewed?: Yes Disposition: Home, Self Care Condition: Stable Diet: Regular Activity Restrictions: no lifting, bending twisting over 20lbs Shower Restrictions: No (may shower no bathing) Driving Restrictions: No Weight Bearing: Full Weight Instruction Topics: Tubes Chest, Pneumothorax No Smoking: If you smoke, Please STOP! Call for help. Follow-up with: Melvin Erickson MD [Provider Admit Priv/Credential] - 1 Week
--- NOTE | 2020-02-13 15:28 | DISCHARGE SUMMARY ---
"Discharge Summary Admit Date: 02/09/20 Discharge Date: 02/13/20 Discharging Provider: Angel Code Status: Attempt Resuscitation Condition at Discharge: Stable Discharge Disposition: 01 Home, Self Care - DIAGNOSES Admission Diagnoses: spontaneous Right sided hemo/pneumo thorax Discharge Diagnoses with Status of Each Condition: same - HPI History of Present Illness: SOB and lightheadedness. Patient was evaluated in the ED for SOB and lightheadedness found to have pneumo thorax. A thoravent was placed. Surgery was called and CT tube was placed and patient was admitted. - CONSULTS | PROCEDURES Procedures: Right thoracostomy tube placement - HOSPITAL COURSE Hospital Course: The patient was admitted with right CT tube and was found to have moderated blood loss from the CT tube and dropped his HCT and HB and required 3 units P RBC's transfusion and hb stabilized in the mid 9's and his output went down. He was placed to water seal and monitored overnight and was stable and his CT tube was clamped and monitored for 4 hours and repeat CXR was stable and there was minimal output so it was removed. He was monitored another 2 hours and was deemed stable for discharge home. - ALLERGIES Allergies/Adverse Reactions: Allergies Allergy/AdvReac Type Severity Reaction Status Date / Time No Known Drug Allergies Allergy Verified 02/09/20 00:02 - MEDICATIONS Home Medications: Ambulatory Orders Medication Instructions Recorded Confirmed HYDROcod/ACETAM 5/325 [[place] 5/325] 1 - 2 tab PO Q4HR PRN #20 tablet 02/13/20 - PHYSICAL EXAM AT DISCHARGE General Appearance: positive: No acute distress Respiratory: positive: Chest non-tender, Breath sounds nml Cardiovascular: positive: Regular rate & rhythm - LABS Result Diagrams: 02/13/20 05:25 02/09/20 00:41 - FOLLOW UP Follow Up: Dr. Erickson in 1 week - TIME SPENT Time Spent in Discharge (Minutes): 32"
--- NOTE | 2020-02-13 15:42 | Discharge Plan ---
Discharge Plan Problem Reviewed?: Yes Disposition: Home, Self Care Condition: Stable Prescriptions: HYDROcod/ACETAM 5/325 [[place] 5/325] 1 - 2 tab PO Q4HR PRN #20 tablet PRN Reason: Pain Diet: Regular Activity Restrictions: no lifting, bending twisting over 20lbs Shower Restrictions: No (may shower no bathing) Driving Restrictions: No Weight Bearing: Full Weight Instruction Topics: Tubes Chest, Pneumothorax No Smoking: If you smoke, Please STOP! Call for help. Follow-up with: Melvin Erickson MD [Provider Admit Priv/Credential] - 1 Week
[2020-02-13 17:14] VITALS: BP 118/63
--- NOTE | 2020-02-13 19:25 | PROVIDER PROGRESS NOTE ---
Subjective - General Admit Date: 02/09/20 Procedure Date: 02/09/20 Post Op Days: 4 Procedure Performed: Right chest tube placement - Review of Systems Wound/Incisions: positive: Dressing dry and intact Drain Type: Right CT-clamped, no air leak minimal output General: positive: No symptoms HEENT: positive: No symptoms Pulmonary: positive: Pleuritic chest pain (improved off suction, slept well last night) Cardiovascular: positive: No symptoms Gastrointestinal: positive: No symptoms Objective - Patient Data Vital Signs: Vital Signs x48h Temp Pulse Resp BP Pulse Ox 02/13/20 17:13 37 C 74 18 118/63 100 02/13/20 16:00 36.6 C 78 16 127/74 100 02/13/20 12:10 36.9 C 83 18 133/88 H 100 Intake & Output: Intake and Output Totals x24h 02/11/20 02/12/20 02/13/20 23:59 23:59 23:59 Intake Total 2890 3970.00 2480 Output Total 3650 1512 78 Balance -760 2458.00 2402 - Lab Results Lab Results: 02/13/20 05:25 02/09/20 00:41 Other Lab Results: Lab Results x24hrs 02/13/20 Range/Units 05:25 WBC 7.6 (4.8-10.8) x10^3/uL RBC 2.91 L (4.70-6.10) 10^6/uL Hgb 9.2 L (14.0-18.0) g/dL Hct 27.1 L (42.0-52.0) % MCV 93.1 (80.0-94.0) fL MCH 31.6 H (27.0-31.0) pg MCHC 33.9 (32.0-36.0) g/dL RDW 15.3 H (12.0-15.0) % Plt Count 258 (130-450) 10^3/uL MPV 9.2 (7.4-11.4) fL - Physical Exam Respiratory: positive: Other (Chest tube removed at the bedside in the usual fashion without issue) Impression/Plan - Problem List Problem List: Hemo/pneumthorax s/p right CT tube placement. CT removed without issue at the bedside. Will watch for 2 hours and if no issues plan d/c with outpatient follow up.
== END 2020-02-13 17:38 | disposition home or self-care (01) | DRG 187 ==
LOC: EDBD → ED 23:56 → MS2 02-09 04:34
PROVIDERS: ADMIT Surgery; ATTEND Surgery
PROC: 0W29X0Z Change Drainage Device in Right Pleural Cavity, External Approach (ICD-10-PCS; principal; 2020-02-09)
PROC: 30233N1 Transfusion of Nonautologous Red Blood Cells into Peripheral Vein, Percutaneous Approach (ICD-10-PCS; 2020-02-10)
PROC: 0WP9X0Z Removal of Drainage Device from Right Pleural Cavity, External Approach (ICD-10-PCS; 2020-02-13)
DX: J94.2 Hemothorax (principal); D62 Acute posthemorrhagic anemia
CPT/HCPCS: 32551; 36415; 71046; 71260; 80048; 85014; 85018; 85025; 85027; 85610; 85730; 86850; 86900; 86901; 86920; 96374; 99284; 99285; A9270; J2060; J7120; P9016; Q0162; Q9967; 71045